=== PATIENT | male | born 1970 | race Caucasian/White ===

== ENCOUNTER 2019-09-26 11:31 | Emergency (ER) | payer OTHER, SELFPAY ==
--- NOTE | ~2019-09-26 | XR_ITS ---
XR knee RT 2V 09/26/2019 12:31 INDICATION: Right knee pain PROCEDURE: 2 views right knee COMPARISON: No prior studies for comparison. FINDINGS: Fracture, dislocation or subluxation is not identified. Small knee effusion. The soft tissu es appear within normal limits. No foreign bodies are identified. IMPRESSION: 1: NO ACUTE BONE OR JOINT ABNORMALITY IDENTIFIED. Reviewed, dictated and finalized at location A.
[2019-09-26 11:34] VITALS: BP 132/100; PULSE 75; RESP 18; TEMP 36.2; O2SAT 99
[2019-09-26 12:29] LABS: Basophils Percent Auto 0.5 % (0.2-1.2); Eosinophils Absolute Auto 0.3 K/mm3 (0-0.3); Eosinophils Percent Auto 3.7 % (0-4.4); Hematocrit 44.9 % (42.0-52.0); Hemoglobin 15.4 g/dL (14.0-18.0); Immature Granulocyte Absolute 0.02 K/mm3 (0.00-0.031); Immature Granulocyte Percent A 0.2 % (0-0.5); Lymphocytes Absolute Auto 2.49 K/mm3 (0.9-3.2); Lymphocytes Percent Auto 30.3 % (18.3-44.2); Mean Corpuscular HGB Conc 34.3 g/dl (32-36); Mean Corpuscular Hemoglobin 30.1 pg (26-34); Mean Corpuscular Volume 87.9 fl (80-100); Mean Platelet Volume 10.8 fl (7.4-10.4); Monocytes Absolute Auto 0.6 K/mm3 (0.1-0.6); Monocytes Percent Auto 7.2 % (2.6-8.5); Neutrophils Absolute Auto 4.8 K/mm3 (1.3-6.7); Neutrophils Percent Auto 58.1 % (45.5-73.1); Platelet Count Result 237 k/mm3 (150-375); Red Blood Count 5.11 M/mm3 (4.6-6.20); Red Cell Distribution Width 12.4 % (11.5-14.5); White Blood Count 8.2 K/mm3 (4.5-10.0)
[2019-09-26 12:43] LABS: Alanine Aminotransferase 35 U/L (4-50); Albumin Level 4.3 g/dL (3.5-5.1); Alkaline Phosphatase 61 U/L (38-126); Aspartate Amino Transferase 34 U/L (17-59); Bilirubin,Total 0.5 mg/dL (0.2-1.3); Blood Urea Nitrogen 15 mg/dL (9-20); Calcium 8.9 mg/dL (8.4-10.2); Carbon Dioxide 23 mmol/L (22-30); Chloride 103 mmol/L (98-107); Estimated CRCL calculation 600 ml/min; Estimated Glomerular Filt Rate > 60; Glucose 138 mg/dL (75-110); Potassium 3.8 mmol/L (3.4-5.0); Sodium 134 mmol/L (137-145)
--- NOTE | 2019-09-26 12:49 | ED.LOWEXIN ---
HPI - Extremity Injury (Lower) General Chief Complaint: Extremity Injury, Lower Stated Complaint: knee pain/swelling Time Seen by Provider: 09/26/19 12:00 History of Present Illness HPI Narrative: Patient presents with his for sore right knee. He says there was no injury. He woke up with it red and swollen and difficult to move. He works as a excavator. He had an injury to this knee many years ago where he scraped the skin off the side. He has had a varicose vein there for years, but now it is tender. He has had no fever chills sweats. He denies any illness. He takes vitamin supplements but no prescription medicine. He refuses to take an ibuprofen here. Onset (ago): hour(s) Related Data Allergies Allergy/AdvReac Type Severity Reaction Status Date / Time No Known Allergies Allergy Verified 09/26/19 11:36 Review of Systems Review of Systems: Narrative: CONSTITUTIONAL: Denies fever, chills, or sweats. EYES: Denies visual changes, redness, or discharge. ENT: Denies rhinorrhea, congestion, sore throat, or otalgia. CARDIOVASCULAR: Denies chest pain, palpitations, or edema. RESPIRATORY: Denies cough or dyspnea. GASTROINTESTINAL: Denies abdominal pain, nausea, vomiting, or diarrhea. GENITOURINARY: Denies dysuria or hematuria. SKIN: Denies rash or itching. MUSCULOSKELETAL: Denies back pain, or myalgia. NEUROLOGIC: Denies headache, numbness, or weakness. PSYCHIATRIC: Denies anxiety or depression. [facility] Social History Social History (Updated 09/26/19 @ 13:03 by Nisreen Ribeiro MD) Alcohol intake: current Substance use: current Substance use type: marijuana Gender identity (if verbalized by the patient): Male Exam Narrative: Exam Narrative: GENERAL: Well-appearing, well-nourished, and in no acute distress. HEAD: Normocephalic, atraumatic. EYES: PERRLA and EOMI. ENT: Nares clear, no rhinorrhea or epistaxis. Mucous membranes moist. NECK: Supple. CHEST: Clear to auscultation. No respiratory distress. HEART: Regular rate and rhythm. No murmur heard. Normal peripheral pulses. ABDOMEN: Soft, nontender, nondistended, normal active bowel sounds. EXTREMITIES: Right knee swollen slightly red, with a large varicose vein on the medial side, that goes from below the knee laterally and then above the knee. It is not tender to touch SKIN: Warm, dry, no rash. NEURO: No focal deficits. Alert and oriented x3. PSYCH: Normal mood and affect. Course Reevaluation(s) Reevaluation #1: Went in to tell the patient and his the x-ray findings. The thinks that Dr. Obando will see orthopedist that at her mother's hip. The patient agrees to wear the knee immobilizer, and will maybe take the pain medicine. He says he is going back to work today. Then they tell me that her daughter had a soccer injury and had a meniscal tear. I suspect that is what this patient had and told him so. Date: 09/26/19 Time: 13:11 Consultations Consultation #1: Call Dr. Obando, and he was able to look at the x-ray, and recommends a knee immobilizer anti-inflammatories and follow-up in the office. Date: 09/26/19 Time: 13:05 Vital Signs Vital signs: Vital Signs Temperature 97.2 F L 09/26/19 11:34 Pulse Rate 75 09/26/19 11:34 Respiratory Rate 18 09/26/19 11:34 Blood Pressure 132/100 H 09/26/19 11:34 Pulse Oximetry 99 09/26/19 11:34 Temperature 98.0 F 09/26/19 13:45 Pulse Rate 80 09/26/19 13:45 Respiratory Rate 20 09/26/19 13:45 Blood Pressure 120/80 09/26/19 13:45 Pulse Oximetry 99 09/26/19 13:45 MDM - Extremity Injury (Lower) Medical Records Attestation: I reviewed the patient's medical records. Lab Data Attestation: I reviewed the patient's lab results. Result diagrams: 09/26/19 12:20 09/26/19 12:20 Labs: Lab Results 09/26/19 09/26/19 09/26/19 Range/Units 12:20 12:20 12:20 WBC 8.2 (4.5-10.0) K/mm3 RBC 5.11 (4.6-6.20) M/mm3 Hgb 15.4 (14.0-18.0) g/dL
[2019-09-26 12:53] LABS: Erythrocyte Sedimentation Rate 17 mm/hr (0-20)
[2019-09-26] MEDS: IBUPROFEN 600 MG TABLET PO (13:32)
[2019-09-26 13:45] VITALS: BP 120/80; PULSE 80; RESP 20; TEMP 36.7; O2SAT 99
== END 2019-09-26 13:47 | disposition home or self-care (01) ==
PROVIDERS: Emergency Provider Emergency Medicine; PCP Internal Medicine
DX: M25.561 Pain in right knee (principal); M25.461 Effusion, right knee; I83.91 Asymptomatic varicose veins of right lower extremity
CPT/HCPCS: 36415; 73560; 80053; 85025; 85652; 99283; A9270

== ENCOUNTER 2019-12-06 16:45 | Emergency (ER) | payer OTHER, SELFPAY ==
[2019-12-06 17:07] VITALS: BP 128/76; PULSE 76; RESP 16; TEMP 37.1; O2SAT 99
--- NOTE | 2019-12-06 17:18 | ED.LOWEXIN ---
HPI - Extremity Injury (Lower) General Chief Complaint: Extremity Injury, Lower Stated Complaint: right leg pain Time Seen by Provider: 12/06/19 17:18 Source: patient Mode of arrival: ambulatory Limitations: no limitations History of Present Illness HPI Narrative: Lobo Perez is a 49 yo male with no PMH who comes to express care because dog ran into him and he has a large bruise on which leg right lateral lower extremity; states is warm and hot is concerned about a blood clot. He has no history medical history; quit smoking 3 years ago Related Data Allergies Allergy/AdvReac Type Severity Reaction Status Date / Time No Known Allergies Allergy Verified 10/05/19 10:29 Review of Systems Review of Systems: Narrative: CONSTITUTIONAL: Denies fever, chills, sweats. EYES: Denies visual changes, redness, discharge. ENT: Denies rhinorrhea, congestion, sore throat, otalgia. CARDIOVASCULAR: Denies chest pain, palpitations, edema. RESPIRATORY: Denies dyspnea, wheezing, cough GASTROINTESTINAL: Denies abdominal pain, nausea, vomiting, diarrhea. GENITOURINARY: Denies dysuria, hematuria, abnormal discharge SKIN: Denies rash or itching. NEUROLOGIC: Denies numbness, or focal weakness. PSYCHIATRIC: Denies anxiety or depression. Extremity: Right lower extremity bruising PMFSH Past Medical History Medical History Effusion, right knee Right knee injury Right knee pain Seasonal allergies Vision abnormalities Family History Family History Other Diabetes mellitus Heart disease Hypertension Social History Social History Smoking status: Former smoker Smoking end date: 04/18/16 Alcohol intake: current Substance use: current Substance use type: marijuana Gender identity (if verbalized by the patient): Male Comments At time of signature, I agree with nursing past medical, surgical, social and family history. There is no relevant family history pertinent to the presenting complaint. Exam Narrative: Exam Narrative: GENERAL: This is a well-nourished, well-developed patient, in mild distress. HEAD: normocephalic, atraumatic. EYES: Sclera clear/white. Vision is grossly intact. EARS: External ears normal. Hearing grossly intact. NOSE: External nose normal without nasal discharge, nares without redness, no rhinorrhea. THROAT: Mucous membranes moist, NECK: Neck supple, CARDIOVASCULAR: Regular rate and rhythm without murmurs, gallops, or rubs. RESPIRATORY: Clear to auscultation. Breath sounds equal bilaterally. No wheezes, rales, or rhonchi. GASTROINTESTINAL: Abdomen soft, SKIN: warm, intact with no suspicious lesions or rash, good texture and turgor. Torturous varicose vein on right leg that runs from mid anterior thigh to lateral part of right patella down into anterior lower leg; point of contact with dog there is and indurated ecchymotic area about 6 x 4, no pulsation, is not warm, is not erythematous NEURO: awake, alert, and oriented to person, place and time. There were no obvious focal neurologic abnormalities. Steady gait EXTREMITIES: Normal range of motion. BACK: Nontender without deformity Course Course Emergency Course: Patient placed in [place] wrap nurse demonstrated the correct way to apply compression to area, may ice area, patient is not to exercise aggressively till pain is gone from area Vital Signs Vital signs: Vital Signs Temperature 98.7 F 12/06/19 17:07 Pulse Rate 76 12/06/19 17:07 Respiratory Rate 16 12/06/19 17:07 Blood Pressure 128/76 12/06/19 17:07 Pulse Oximetry 99 12/06/19 17:07 Temperature 98.7 F 12/06/19 17:07 Pulse Rate 76 12/06/19 17:07 Respiratory Rate 16 12/06/19 17:07 Blood Pressure 128/76 12/06/19 17:07 Pulse Oximetry 99 12/06/19 17:07 MDM - Extremity Injury (Lower) Differential Mely
== END 2019-12-06 17:41 | disposition home or self-care (01) ==
PROVIDERS: Emergency Provider Nurse Practitioner; PCP Internal Medicine
DX: S80.11XA Contusion of right lower leg, initial encounter (principal); W54.1XXA Struck by dog, initial encounter; Z87.891 Personal history of nicotine dependence
CPT/HCPCS: 99212; G0463

== ENCOUNTER 2024-07-09 11:10 | Outpatient (CLI) | payer OTHER, SELFPAY ==
--- NOTE | ~2024-07-09 | XR_ITS ---
EXAMINATION: XR chest 2V DATE: 07/09/2024 11:34 INDICATION: Cough. TECHNIQUE: Frontal and lateral views of the chest were obtained. COMPARISON: Chest 2 views 11/19/2018, chest CT 11/19/2018 FINDINGS: Calcified bilateral lung nodules and calcified hilar and mediastinal lymph nodes are consis tent with old granulomatous disease. No pleural effusion or pneumothorax. The heart size is normal. IMPRESSION: 1. No acute cardiopulmonary disease. Reviewed, dictated and finalized at location A.
--- OUTSIDE RECORDS SUMMARY | 2024-07-09 13:19 | XMS_ITS | CONTINUITY OF CARE DOCUMENT ---
Author Name debra richardson Address Unknown Organization [facility] Address [id number] [place] [address] [address] [place] [address] Phone [phone] Care Team Providers Care Hand Binder Stripper Name Role Phone debra richardson Unavailable Unavailable
--- OUTSIDE RECORDS SUMMARY | 2024-07-09 13:19 | XMS_ITS | Data Portability ---
Author Organization [place] [employer] Main Office Address [address] [place] [address] Assessment Encounter Date Assessment Date Assessment LastModified by Organization Details LastModified Time 03/22/2023 03/22/2023 53-year-old patient presents today with bilateral thumb pain that has been going on for few months now. He denies any injury. He states he works with his hands daily at his job and is becoming painful to grasp items and drive. For treatment he takes Aleve daily which helps. He rates his pain a 2/10. Review of systems per patient questionnaire Imaging: X-rays reviewed show no acute bony abnormality or fracture. Mild degenerative changes at bilateral CMC joints, other joint spaces preserved. Physical exam: Pain with CMC grind bilaterally. Minimal pain with palpitation around the CMC joint. Able to perform full range of motion without issue. Sensation intact. We will provide him with bilateral thumb splints to help with immobilization of the CMC joint. He can wear these at all times if possible. he is happy with the pain relief he gets from Aleve so he can continue to take that consistently. We discussed the benefits of hand therapy but he is not interested in attending at this time. We will see him back in 2-3 months to check his progress. [email or web address] Not available 03/23/2023 10:41:09 Plan of Treatment Reminders Order Date Submit Date Provider Last Modified By Organization Details Last Modified Time Details Appointments None recorded. Lab lipid panel, serum 2023 024 [email or web address] [facility], [address] [facility], [place], [address], 12:32:18 CMP, serum or plasma 2023 024 [email or web address] [facility], [address] [facility], [place], [address], 4 12:33:13 CBC w/ auto diff 2023 024 [email or web address] [facility], [address] , [place], [address], 4 12:33:51 PSA, serum or plasma 2022 023 [facility], [address] [place], [address], 3 16:23:57 CMP, serum or plasma 2022 023 [email or web address] [facility], [address] [place], [address], 3 16:23:57 lipid panel, serum 2022 023 [email or web address] [facility], [address] [place] [address], [address], 3 16:23:57 Referral None recorded. Procedures None recorded. Surgeries None recorded. Imaging XR, hand 2022 023 [email or web address] [facility], [address], [place], [address], 3 10:35:57 Medication Orders benzonatate 200 mg capsule 2023 024 [id number], [address], [place], [place], [id number], 4 12:02:23 Zithromax Z-Scar 250 mg tablet 2023 024 [facility], [address], [place], [place], [id number], 4 12:02:29 Patient TargetsNo targets recorded. Patient Instructions Encounter Date Encounter Id Patient Instructions Last Modified By Organization Details Last Modified Time 06/22/2022 [id number] risk assessment* [email or web address] Not availabl e 06/22/2022 10:56:28 INFLUENZA VACCIN E Recommended today, but patient declined Ordered Pat ient will get at local pharmacy/health department TD/TDAP Recommended today, patient declined Ordered Pat ient will get at local pharmacy/health department PNEUMONIA VACCINE Ordered Recommended today, patient declined Patient will get at local pharmacy/health department Recommend ed at age 64 SHINGLES Ordered Recommended today, patient declined Patient will get at local pharmacy/health department PSA COLORECTAL SCREENING Recommended today, but patient declined DEPRESSION SCREENING Negative BMI Overweight continue your current weight loss efforts try to lose 5% of your body weight try to lose 10% of your body weight NUTRITION PHYSICAL ACTIVITY Need more exercise/physical activity ALCOHOL USE No alcohol use Occasional/Socia l Use TOBACCO USE former smoker LUNG CANCER SCREENING Non Smoker-not indicated SEXUALLY ACTIVE HEPATITIS C SCREENING Not indicated GLUCOSE SCREENING LIPID SCREENING [email or web address] Not available 06/22/2022 10:38:59 Wellness evaluat ion risk assessment stable. Follow-up for history of gallstones which are asymptomatic, hyperlipidemia, medial meniscus tear and well as obesity all clinically stable. Due for a PSA as well as other blood test. Has suggested for some intermittent pain in the left upper quadrant which sounds muscular try some Mag-Ox twice daily. Will continue on current Rx check blood work consisting of CMP, lipid and PSA. Will also set up for Cologuard test. See no contraindication to surgery. 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 Will set up with orthopedics for further evaluation. Portions of the record may have been created with voice recognition software. Occasional wrong-word or s ound-a-like substitutions may have occurred due to the inherent limitations of voice recognition software. Read the chart carefully and recognize, using context, where substitutions have occurred. Set up with Dr. Renae Anderson for further evaluation. [email or web address] Not available 03/17/2023 14:50:11 04/05/2024 [id number] risk assessment* [email or web address] Not availabl e 04/05/2024 12:02:16 INFLUENZA VACCIN E Recommended today, but patient declined TD/TDAP Recommended today, patient declined Ordered Pat ient will get at local pharmacy/health department PNEUMONIA VACCINE Ordered Recommended today, patient declined Patient will get at local pharmacy/health department Recommend ed at age 64 SHINGLES Ordered Recommended today, patient declined Patient will get at local pharmacy/health department PSA Ordered No screening necessary patient is up to date COLORECTAL SCREENING No screening necessary patient is up to date DEPRESSION SCREENING Negative BMI Overweight continue your current weight loss efforts try to lose 5% of your body weight try to lose 10% of your body weight NUTRITION PHYSICAL ACTIVITY Need more exercise/physical activity ALCOHOL USE No alcohol use Occasional/Socia l Use TOBACCO USE non smoker LUNG CANCER SCREENING Non Smoker-not indicated SEXUALLY ACTIVE HEPATITIS C SCREENING Not indicated GLUCOSE SCREENING LIPID SCREENING [email or web address] Not available 04/05/2024 11:24:57 Adult health examination risk assessment stable. Follow-up for bronchitis, hyperlipidemia and obesity. Plan to check blood work consisting of CBC, CMP and lipid panel. Continue on current Rx will give a coverage of a Z-Scar and a steroid Medrol past. Follow-up in six months Follow Up: 6 Months Approximate Date: 10/02/2024 Portions of the record may have been created with voice recognition software. Occasional wrong-word or s ound-a-like substitutions may have occurred due to the inherent limitations of voice recognition software. Read the chart carefully and recognize, using context, where substitutions have occurred. Created: Cipriano Trujillo M.D. 04.05.2024 11:01 AM Not available 04/05/2024 12:01:40 Reason for Referral None Reported. Results Created Date Observation Date Name Description Value Unit Range Abnormal Flag Note LastModifiedBy Organization Detail LastModifiedTime 07/28/1907/27/2022 COLOG UARD cologuard result reportable NEGATI VE negati ve NEGAT ROSE TEST RESUL T. A negat rose Colog uard resul t indic ates a low likel ihood that a color ectal cance r (CRC) or advan foster adeno ma (roslyn omato us polyp s with more advan foster pre-m align ant featu res) is prese nt. The chanc e that a perso n with a negat rose Colog uard test has a color ectal cance r is less than 1 in 1500 (nega tive predi ctive value >99.9 %) or has an advan foster adeno ma is less than 5.3% (nega tive predi ctive value 94.7% ). These data are based on a prosp ectiv e cross -sect ional study of 10,00 0 indiv idual s at [place] [facility] risk for color ectal cance r who were scree abe with both Colog uard and colon oscop y. (Maki Valladares. et al, N Engl J Med 2014; 370(1 4):12 86-12 97) The abbie l value (refe rence range ) for this assay is negat rose. COLOG UARD RE-SC REENI NG RECOM MENDA TION: Perio dic color ectal cance r scree ricky is an impor tant part of preve ntive healt hcare for asymp tomat ic indiv idual s at [place] [facility] risk for color ectal cance r. Follo wing a negat rose Colog uard resul t, the Ameri can Cance r Socie ty and U.S. Multi -Soci ety Task Force scree ricky guide lines recom mend a Colog uard re-sc reeni ng inter anders of 3 years . Refer ences : Ameri can Cance r Socie ty Guide line for Color ectal Cance r Scree ricky: https ://jaylen w.can cer.o rg/ca ncer/ colon -rect al-ca ncer/ detec tion- diagn osis- stagi ng/ac s-rec ommen datio ns.ht ml.; Eben JACOBS, Obdulia LEUNG, Yehuda FULLER, Color ectal Cance r Scree ricky: Recom menda tions for Physi cians and Patie nts from the U.S. Multi -Soci ety Task Force on Color ectal Cance r Scree ricky , Hailey ge rolog y 2017; 112:1 016-1 030. TEST DESCR IPTIO N: [place] site algor ithmi c damaris sis of stool DNA-b iomar kers with hemog lobin immun oassa y. Quant itati ve value s of indiv idual bioma rkers are not repor table and are not assoc iated with indiv idual bioma rker resul t refer ence range s. Colog uard is inten ded for color ectal cance r scree ricky of adult s of eithe r sex, 45 years or older , who are at [facility] for color ectal cance r (CRC) . Colog uard has been appro gaby for use by the U.S. FDA. The perfo rmanc e of Colog uard was estab lishe d in a cross secti onal study of [facility] adult s aged 50-84 . Colog uard perfo rmanc e in patie nts ages 45 to 49 years was estim ated by sub-g roup damaris sis of near- age group s. Colon oscop ies perfo rmed for a posit rose resul t may find as the most clini doreen signi fican t lesio n: color ectal cance r [4.0% ], advan foster adeno ma (incl uding sessi le stacie jaja polyp s great er than or equal to 1cm diame ter) [20%] or non- advan foster adeno ma [31%] ; or no color ectal neopl betty [45%] . These estim ates are deriv ed from a prosp ectiv e cross -sect ional scree ricky study of 0 indiv idual s at [facility] for color ectal cance r who were scree abe with both Colog uard and colon oscop y. (Maki Paz et al, N Engl J Med 2014; 370(1 4):12 86-12 97.) Colog uard may produ ce a false negat rose or false posit rose resul t (no color ectal cance r or preca ncero us polyp prese nt at colon oscop y follo w up). A negat rose Colog uard test resul t does not guara ntee the absen ce of CRC or advan foster adeno ma (pre- cance r). The curre nt Colog uard scree ricky inter anders is every 3 years . (Amer ican Cance r Socie ty and U.S. Multi -Soci ety Task Force ). Colog uard perfo rmanc e data in a 0 patie nt pivot al study using colon oscop y as the refer ence metho d can be acces sed at the follo wing locat ion: www.e xactl abs.c om/re yenny . Addit ional descr iptio n of the Colog uard test proce ss, warni ngs and preca ution s can be found at www.c jewelogu deepa.c om. Not Available [facility] (Cologuard Orders Only) [address], [place], [address], 08/03/2022 10:33:40 07/27/19 24 07/30/2023 LIPID PANEL , STAND DEEPA cholesterol, total 239 mg/dL <200 high Not Available [facility] [address] [address] [place], [address], 07/30/2023 23:25:22 07/27/19 24 07/30/2023 LIPID PANEL , STAND DEEPA HDL cholesterol 45 mg/dL > or = 40 normal Not Available [facility] [address] [address] [place], [address], 07/30/2023 23:25:22 07/27/19 24 07/30/2023 LIPID PANEL , STAND DEEPA triglyceride s 120 mg/dL <150 normal Not Available [facility] [address] [address] [place], [address], 07/30/2023 23:25:22 07/27/19 24 07/30/2023 LIPID PANEL , STAND DEEPA LDL-choleste rol 169 mg/dL _(ingrid c) high Refer ence range : <100 Tushar able range <100 mg/dL for prima ry preve ntion ; <70 mg/dL for patie nts with CHD or diabe tic patie nts with > or = 2 CHD risk facto rs. LDL-C is now calcu lated using the Tania n-Hop kins calcu latio n, which is a valid ated novel metho d provi bacilio gregg acy than the Fried marsha equat ion in the estim ation of LDL-C . Tania n SS et al. JOANNA. 2013; 310(1 9): 2061- 2068 (http ://ed ucati on.Martell [employer]. com/f aq/FA Q164) Not Available [address] [address] [place], [address], 07/30/2023 23:25:22 07/27/19 24 07/30/2023 LIPID PANEL , STAND DEEPA chol/HDLC ratio 5.3 (calc ) <5.0 high Not Available [address] [place], [address], 07/30/2023 23:25:22 07/27/19 24 07/30/2023 LIPID PANEL , STAND DEEPA non HDL cholesterol 194 mg/dL _(ingrid c) <130 high For patie nts with diabe flako plus 1 major ASCVD risk facto r, treat ing to a non-H DL-C goal of <100 mg/dL (LDL- C of <70 mg/dL ) is consi dered a thera peuti c optio n. Not Available [address], [address], 07/30/2023 23:25:22 07/27/19 24 07/30/2023 COMPR EHENS ROSE METAB OLIC PANEL glucose 77 mg/dL 65-99 normal Fasti ng refer ence inter anders Not Available [address], [address], 07/30/2023 23:25:23 07/27/19 24 07/30/2023 COMPR EHENS ROSE METAB OLIC PANEL urea nitrogen (BUN) 16 mg/dL 7-25 normal Not Available [address], [address], 07/30/2023 23:25:23 07/27/19 24 07/30/2023 COMPR EHENS ROSE METAB OLIC PANEL creatinine 0.94 mg/dL 0.70-1 .30 normal Not Available [facility] [address] [place], [address], 07/30/2023 23:25:23 07/27/19 24 07/30/2023 COMPR EHENS ROSE METAB OLIC PANEL eGFR 96 mL/mi n/1.7 3m2 > or = 60 normal Not Available [address], [address], 07/30/2023 23:25:23 07/27/19 24 07/30/2023 COMPR EHENS ROSE METAB OLIC PANEL BUN/creatini ne ratio SEE NOTE: (calc ) 6-22 Not Repor jaja: BUN and Creat inine are withi n refer ence range . Not Available [address], [place], [address], 07/30/2023 23:25:23 07/27/19 24 07/30/2023 COMPR EHENS ROSE METAB OLIC PANEL sodium 135 mmol/ L 135-14 6 normal Not Available [address] [address] [place], [address], 07/30/2023 23:25:23 07/27/19 24 07/30/2023 COMPR EHENS ROSE METAB OLIC PANEL potassium 4.6 mmol/ L 3.5-5. 3 normal Not Available [address] [address] [place], [address], 07/30/2023 23:25:23 07/27/19 24 07/30/2023 COMPR EHENS ROSE METAB OLIC PANEL chloride 101 mmol/ L 98-110 normal Not Available [address] [address] [place], [address], 07/30/2023 23:25:23 07/27/19 24 07/30/2023 COMPR EHENS ROSE METAB OLIC PANEL carbon dioxide 28 mmol/ L 20-32 normal Not Available [address] [address] [place], [address], 07/30/2023 23:25:23 07/27/19 24 07/30/2023 COMPR EHENS ROSE METAB OLIC PANEL calcium 9.3 mg/dL 8.6-10 .3 normal Not Available [address], [address], 07/30/2023 23:25:23 07/27/19 24 07/30/2023 COMPR EHENS ROSE METAB OLIC PANEL protein, total 7.7 g/dL 6.1-8. 1 normal Not Available [address], [address], 07/30/2023 23:25:23 07/27/19 24 07/30/2023 COMPR EHENS ROSE METAB OLIC PANEL albumin 4.2 g/dL 3.6-5. 1 normal Not Available [address], [address], 07/30/2023 23:25:23 07/27/19 24 07/30/2023 COMPR EHENS ROSE METAB OLIC PANEL globulin 3.5 g/dL_ (calc ) 1.9-3. 7 normal Not Available [address], [address], 07/30/2023 23:25:23 07/27/19 24 07/30/2023 COMPR EHENS ROSE METAB OLIC PANEL albumin/glob ulin ratio 1.2 (calc ) 1.0-2. 5 normal Not Available [address], [address], 07/30/2023 23:25:23 07/27/19 24 07/30/2023 COMPR EHENS ROSE METAB OLIC PANEL bilirubin, total 0.5 mg/dL 0.2-1. 2 normal Not Available [address], [address], 07/30/2023 23:25:23 07/27/19 24 07/30/2023 COMPR EHENS ROSE METAB OLIC PANEL alkaline phosphatase 44 U/L 35-144 normal Not Available [address], [address], 07/30/2023 23:25:23 07/27/19 24 07/30/2023 COMPR EHENS ROSE METAB OLIC PANEL AST 32 U/L 10-35 normal Not Available [address], [address], 07/30/2023 23:25:23 07/27/19 24 07/30/2023 COMPR EHENS ROSE METAB OLIC PANEL ALT 33 U/L 9-46 normal Not Available [address], [address], 07/30/2023 23:25:23 07/27/19 24 07/30/2023 CBC (INCL UDES DIFF/ PLT) white blood cell count 6.5 thous and/u L 3.8-10 .8 normal Not Available [address], [address], 07/30/2023 23:25:24 07/27/19 24 07/30/2023 CBC (INCL UDES DIFF/ PLT) red blood cell count 5.15 angela on/uL 4.20-5 .80 normal Not Available [address], [address], 07/30/2023 23:25:24 07/27/19 24 07/30/2023 CBC (INCL UDES DIFF/ PLT) hemoglobin 15.5 g/dL 13.2-1 7.1 normal Not Available [address], [address], 07/30/2023 23:25:24 07/27/19 24 07/30/2023 CBC (INCL UDES DIFF/ PLT) hematocrit 46.6 % 38.5-5 0.0 normal Not Available [address], [address], 07/30/2023 23:25:24 07/27/19 24 07/30/2023 CBC (INCL UDES DIFF/ PLT) MCV 90.5 fL 80.0-1 00.0 normal Not Available [address], [address], 07/30/2023 23:25:24 07/27/19 24 07/30/2023 CBC (INCL UDES DIFF/ PLT) MCH 30.1 pg 27.0-3 3.0 normal Not Available [address], [address], 07/30/2023 23:25:24 07/27/19 24 07/30/2023 CBC (INCL UDES DIFF/ PLT) MCHC 33.3 g/dL 32.0-3 6.0 normal Not Available [address], [address], 07/30/2023 23:25:24 07/27/19 24 07/30/2023 CBC (INCL UDES DIFF/ PLT) RDW 12.7 % 11.0-1 5.0 normal Not Available [address], [address], 07/30/2023 23:25:24 07/27/19 24 07/30/2023 CBC (INCL UDES DIFF/ PLT) platelet count 195 thous and/u L 140-40 0 normal Not Available [address], [address], 07/30/2023 23:25:24 07/27/19 24 07/30/2023 CBC (INCL UDES DIFF/ PLT) MPV 11.5 fL 7.5-12 .5 normal Not Available [address], [address], 07/30/2023 23:25:24 07/27/19 24 07/30/2023 CBC (INCL UDES DIFF/ PLT) absolute neutrophils 3328 cells /uL 1500-7 800 normal Not Available [address], [address], 07/30/2023 23:25:24 07/27/19 24 07/30/2023 CBC (INCL UDES DIFF/ PLT) absolute lymphocytes 2282 cells /uL 850-39 00 normal Not Available [address] [place], [address], 07/30/2023 23:25:24 07/27/19 24 07/30/2023 CBC (INCL UDES DIFF/ PLT) absolute monocytes 579 cells /uL 200-95 0 normal Not Available [address], [address], 07/30/2023 23:25:24 07/27/19 24 07/30/2023 CBC (INCL UDES DIFF/ PLT) absolute eosinophils 260 cells /uL 15-500 normal Not Available [address], [address], 07/30/2023 23:25:24 07/27/19 24 07/30/2023 CBC (INCL UDES DIFF/ PLT) absolute basophils 52 cells /uL 0-200 normal Not Available [address], [address], 07/30/2023 23:25:24 07/27/19 24 07/30/2023 CBC (INCL UDES DIFF/ PLT) neutrophils 51.2 % normal Not Available [address], [address], 07/30/2023 23:25:24 07/27/19 24 07/30/2023 CBC (INCL UDES DIFF/ PLT) lymphocytes 35.1 % normal Not Available [address], [address], 07/30/2023 23:25:24 07/27/19 24 07/30/2023 CBC (INCL UDES DIFF/ PLT) monocytes 8.9 % normal Not Available [address], [address], 07/30/2023 23:25:24 07/27/19 24 07/30/2023 CBC (INCL UDES DIFF/ PLT) eosinophils 4.0 % normal Not Available [address], [address], 07/30/2023 23:25:24 07/27/19 24 07/30/2023 CBC (INCL UDES DIFF/ PLT) basophils 0.8 % normal Not Available [address], [address], 07/30/2023 23:25:24 07/27/19 24 07/30/2023 T4, FREE T4, free 0.9 NG/dL 0.8-1. 8 normal Not Available [address], [address], 07/30/2023 23:25:25 07/27/19 24 07/30/2023 PSA, TOTAL PSA, total 0.22 NG/mL < or = 4.00 normal The total PSA value from this assay syste m is stand ardiz ed again st the WHO stand deepa. The test resul t will be appro ximat elodia 20% lower when cookie red to the equim olar- stand ardiz ed total PSA (Galarza man Coult er). Cookie rison of seria l PSA resul ts shoul d be inter prete d with this fact in mind. This test was perfo rmed using the [employer] chemi lumin escen t metho d. Value s obtai abe from diffe rent assay metho ds canno t be used inter ricci eably . PSA level s, regar dless of value , shoul d not be inter prete d as absol bernard evide nce of the prese nce or absen ce of disea se. Not Available [facility] [place] [address] [place], [address], 07/30/2023 23:25:26 07/27/19 24 07/30/2023 TSH TSH 2.44 mIU/L 0.40-4 .50 normal Not Available [facility] [address] [address] [place], [address], 07/30/2023 23:25:27 07/27/19 24 07/30/2023 TESTO STERO NE, TOTAL , MS testosterone , total, MS 488 NG/dL 250-11 00 For addit ional infor rylan wallace e refer to https ://ed ucati on.qu estMyCityWay. com/f aq/To gamalJett adrian emilyrigo LCMSM S (This link is being provi ded for infor burton nal/e ducat ional purpo ses only. ) (Note ) This test was devrobert perez and its damaris tical perfo rmanc e emeka cteri stics have been deter mined by [employer]. It has not been clear ed or appro gaby by the FDA. This assay has been valid ated pursu ant to the CLIA regul ation s and is used for clini ingrid purpo ses. F med darci n [address] [facility] [address] [facility] [address] [phone] Geno Ferreira MD, PhD Not Available [address] [address] [place], [address], 07/30/2023 23:25:27 04/05/20 24 04/06/2024 LIPID PANEL , STAND DEEPA cholesterol, total 242 mg/dL <200 high Not Available [address] [address] [place], [address], 04/06/2024 13:31:27 04/05/20 24 04/06/2024 LIPID PANEL , STAND DEEPA HDL cholesterol 52 mg/dL > or = 40 normal Not Available [facility] [place] [address] [address] [place], [address], 04/06/2024 13:31:27 04/05/20 24 04/06/2024 LIPID PANEL , STAND DEEPA triglyceride s 140 mg/dL <150 normal Not Available [address], [address], 04/06/2024 13:31:27 04/05/20 24 04/06/2024 LIPID PANEL , STAND DEEPA LDL-choleste rol 162 mg/dL _(ingrid c) high Refer ence range : <100 Tushar able range <100 mg/dL for prima ry preve ntion ; <70 mg/dL for patie nts with CHD or diabe tic patie nts with > or = 2 CHD risk facto rs. LDL-C is now calcu lated using the Tania n-Hop kins calcu parker n, which is a valid ated novel geneo garfield provi bacilio humberto r accur acy than the Fried marsha equat ion in the estim ation of LDL-C . Tania ferguson SS et al. JOANNA. 2013; 310(1 9): 2061- 2068 (http ://ed ucati on.Qu [employer]. com/f aq/FA Q164) Not Available [address], [address], 04/06/2024 13:31:27 04/05/20 24 04/06/2024 LIPID PANEL , STAND DEEPA chol/HDLC ratio 4.7 (calc ) <5.0 normal Not Available [address], [address], 04/06/2024 13:31:27 04/05/20 24 04/06/2024 LIPID PANEL , STAND DEEPA non HDL cholesterol 190 mg/dL _(ingrid c) <130 high For patie nts with diabe flako plus 1 major ASCVD risk facto r, treat ing to a non-H DL-C goal of <100 mg/dL (LDL- C of <70 mg/dL ) is consi dered a thera peuti c optio n. Not Available [address] [address] [place], [address], 04/06/2024 13:31:27 04/05/20 24 04/06/2024 COMPR EHENS ROSE METAB OLIC PANEL glucose 92 mg/dL 65-99 normal Fasti ng refer ence inter anders Not Available [address] [address] [place], [address], 04/06/2024 13:31:28 04/05/20 24 04/06/2024 COMPR EHENS ROSE METAB OLIC PANEL urea nitrogen (BUN) 12 mg/dL 7-25 normal Not Available [address] [address] [place], [address], 04/06/2024 13:31:28 04/05/20 24 04/06/2024 COMPR EHENS ROSE METAB OLIC PANEL creatinine 0.82 mg/dL 0.70-1 .30 normal Not Available [address] [address] [place], [address], 04/06/2024 13:31:28 04/05/20 24 04/06/2024 COMPR EHENS ROSE METAB OLIC PANEL eGFR 104 mL/mi n/1.7 3m2 > or = 60 normal Not Available [address] [address] [place], [address], 04/06/2024 13:31:28 04/05/20 24 04/06/2024 COMPR EHENS ROSE METAB OLIC PANEL BUN/creatini ne ratio SEE NOTE: (calc ) 6-22 Not Repor jaja: BUN and Creat inine are withi n refer ence range . Not Available [address] [address] [place], [address], 04/06/2024 13:31:28 04/05/20 24 04/06/2024 COMPR EHENS ROSE METAB OLIC PANEL sodium 135 mmol/ L 135-14 6 normal Not Available [facility] [address], [address], 04/06/2024 13:31:28 04/05/20 24 04/06/2024 COMPR EHENS ROSE METAB OLIC PANEL potassium 4.5 mmol/ L 3.5-5. 3 normal Not Available [address], [address], 04/06/2024 13:31:28 04/05/20 24 04/06/2024 COMPR EHENS ROSE METAB OLIC PANEL chloride 99 mmol/ L 98-110 normal Not Available [address] [address], [address], 04/06/2024 13:31:28 04/05/20 24 04/06/2024 COMPR EHENS ROSE METAB OLIC PANEL carbon dioxide 32 mmol/ L 20-32 normal Not Available [address], [address], 04/06/2024 13:31:28 04/05/20 24 04/06/2024 COMPR EHENS ROSE METAB OLIC PANEL calcium 9.6 mg/dL 8.6-10 .3 normal Not Available [address], [address], 04/06/2024 13:31:28 04/05/20 24 04/06/2024 COMPR EHENS ROSE METAB OLIC PANEL protein, total 8.0 g/dL 6.1-8. 1 normal Not Available [address], [address], 04/06/2024 13:31:28 04/05/20 24 04/06/2024 COMPR EHENS ROSE METAB OLIC PANEL albumin 4.3 g/dL 3.6-5. 1 normal Not Available [address], [address], 04/06/2024 13:31:28 04/05/20 24 04/06/2024 COMPR EHENS ROSE METAB OLIC PANEL globulin 3.7 g/dL_ (calc ) 1.9-3. 7 normal Not Available [address], [address], 04/06/2024 13:31:28 04/05/20 24 04/06/2024 COMPR EHENS ROSE METAB OLIC PANEL albumin/glob ulin ratio 1.2 (calc ) 1.0-2. 5 normal Not Available [address], [address], 04/06/2024 13:31:28 04/05/20 24 04/06/2024 COMPR EHENS ROSE METAB OLIC PANEL bilirubin, total 0.5 mg/dL 0.2-1. 2 normal Not Available [address], [address], 04/06/2024 13:31:28 04/05/20 24 04/06/2024 COMPR EHENS ROSE METAB OLIC PANEL alkaline phosphatase 52 U/L 35-144 normal Not Available [facility] [address], [address], 04/06/2024 13:31:28 04/05/20 24 04/06/2024 COMPR EHENS ROSE METAB OLIC PANEL AST 36 U/L 10-35 high Not Available [address], [address], 04/06/2024 13:31:28 04/05/20 24 04/06/2024 COMPR EHENS ROSE METAB OLIC PANEL ALT 41 U/L 9-46 normal Not Available [address], [address], 04/06/2024 13:31:28 04/05/20 24 04/06/2024 CBC (INCL UDES DIFF/ PLT) white blood cell count 7.0 thous and/u L 3.8-10 .8 normal Not Available [address], [address], 04/06/2024 13:31:30 04/05/20 24 04/06/2024 CBC (INCL UDES DIFF/ PLT) red blood cell count 5.30 angela on/uL 4.20-5 .80 normal Not Available [address], [address], 04/06/2024 13:31:30 04/05/20 24 04/06/2024 CBC (INCL UDES DIFF/ PLT) hemoglobin 15.9 g/dL 13.2-1 7.1 normal Not Available [address], [address], 04/06/2024 13:31:30 04/05/20 24 04/06/2024 CBC (INCL UDES DIFF/ PLT) hematocrit 47.6 % 38.5-5 0.0 normal Not Available [address], [address], 04/06/2024 13:31:30 04/05/20 24 04/06/2024 CBC (INCL UDES DIFF/ PLT) MCV 89.8 fL 80.0-1 00.0 normal Not Available [address], [address], 04/06/2024 13:31:30 04/05/20 24 04/06/2024 CBC (INCL UDES DIFF/ PLT) MCH 30.0 pg 27.0-3 3.0 normal Not Available [address], [address], 04/06/2024 13:31:30 04/05/20 24 04/06/2024 CBC (INCL UDES DIFF/ PLT) MCHC 33.4 g/dL 32.0-3 6.0 normal For adult s, a sligh t decre ase in the calcu lated MCHC value (in the range of 30 to 32 g/dL) is most likel y not clini doreen signi jeremiah t; roro er, it shoul d be inter prete d with cauti on in corre latio n with other red cell feliberto eters and the patie nt's clini ingrid condi tion. Not Available [address], [address], 04/06/2024 13:31:30 04/05/20 24 04/06/2024 CBC (INCL UDES DIFF/ PLT) RDW 13.0 % 11.0-1 5.0 normal Not Available [facility] [address], [address], 04/06/2024 13:31:30 04/05/20 24 04/06/2024 CBC (INCL UDES DIFF/ PLT) platelet count 220 thous and/u L 140-40 0 normal Not Available [address], [address], 04/06/2024 13:31:30 04/05/20 24 04/06/2024 CBC (INCL UDES DIFF/ PLT) MPV 11.8 fL 7.5-12 .5 normal Not Available [address], [address], 04/06/2024 13:31:30 04/05/20 24 04/06/2024 CBC (INCL UDES DIFF/ PLT) absolute neutrophils 3878 cells /uL 1500-7 800 normal Not Available [address], [address], 04/06/2024 13:31:30 04/05/20 24 04/06/2024 CBC (INCL UDES DIFF/ PLT) absolute lymphocytes 2170 cells /uL 850-39 00 normal Not Available [address], [address], 04/06/2024 13:31:30 04/05/20 24 04/06/2024 CBC (INCL UDES DIFF/ PLT) absolute monocytes 630 cells /uL 200-95 0 normal Not Available [address], [address], 04/06/2024 13:31:30 04/05/20 24 04/06/2024 CBC (INCL UDES DIFF/ PLT) absolute eosinophils 280 cells /uL 15-500 normal Not Available [address], [address], 04/06/2024 13:31:30 04/05/20 24 04/06/2024 CBC (INCL UDES DIFF/ PLT) absolute basophils 42 cells /uL 0-200 normal Not Available [address], [address], 04/06/2024 13:31:30 04/05/20 24 04/06/2024 CBC (INCL UDES DIFF/ PLT) neutrophils 55.4 % normal Not Available [address], [address], 04/06/2024 13:31:30 04/05/20 24 04/06/2024 CBC (INCL UDES DIFF/ PLT) lymphocytes 31.0 % normal Not Available [address], [address], 04/06/2024 13:31:30 04/05/20 24 04/06/2024 CBC (INCL UDES DIFF/ PLT) monocytes 9.0 % normal Not Available [address], [address], 04/06/2024 13:31:30 04/05/20 24 04/06/2024 CBC (INCL UDES DIFF/ PLT) eosinophils 4.0 % normal Not Available [address], [address], 04/06/2024 13:31:30 04/05/20 24 04/06/2024 CBC (INCL UDES DIFF/ PLT) basophils 0.6 % normal Not Available [facility] [address] [address], [place], [address], 04/06/2024 13:31:30 03/22/20 23 XR, hand No observ ation record ed. [email or web address] [facility] [place] [address], [place], [address], 03/23/2023 10:35:56 04/25/19 24 04/25/2023 CT, head, w/wo contr ast [facility] [address] [place] [address] Patien t Name: LOBO PEREZ Access ion #: [id number] Sex: M : 1969 8 Dictat ed By: Mima salazar Attend ing Physic joana: BREONNA TRUJILLO CE Orderi ng Physic joana: BREONNA TRUJILLO CE Exam Date: 2023 13:26 PM Exam Name: CT HEAD WO Admitt ing Diagno sis(es ): CLINIC AL INFORM ATION: Acute posttr aumati c headac he. TECHNI QUE: Axial imagin g was obtain ed throug h the brain withou t contra st. Kirby l and sagitt al reform atted images were obtain ed, review ed, and stored . Images were review ed in brain and bone window s. All CT scans at this medica l facili ty are perfor med using dose modula tion techni ques as approp riate to a perfor med exam includ ing the follow ing: Automa jaja exposu re contro l was utiliz ed; adjust ment of the MA and/or KV accord ing to patien t size; and use of iterat rose recons tructi on techni que. CTDIvo l = 46.59 mGy DLP = 1039.2 mGy-cm COMPAR ANGELIC: No prior studie s. FINDIN GS: There is no acute intrac ranial hemorr mila or extraa xial fluid collec tion. No mass effect or midlin e shift. The ventri cles and sulci are within normal limits in size for age. Basal cister ns are patent . The calvar ium is unrema rkable . Parana dex sinuse s and mastoi d air cells are clear. IMPRES TREY: No CT eviden ce of acute intrac ranial abnorm ality. Electr onical ly Signed by: Mima salazar at 2023 15:09: 16 PM Page 1 [email or web address] [facility] (Imaging) [address] [place], [address], 04/25/2023 17:01:24 Result Notes None recorded. Problems Name Problem SNOMED Code Status Onset Date Resolution Date Notes Provider Name and Address Organization Details Recorded Time Renewal of prescripti on Active 2021 Not Available [facility] 3 12:55:28 Hyperchole sterolemia 23171793 Active Not Available [facility] 3 12:55:28 Blood glucose outside reference range 201053026 Active Not Available [facility] 3 12:55:29 Contact dermatitis caused by urushiol from [place] poison angela 832002489 Active 2021 Not Available [facility] 3 12:55:29 Ulnar nerve entrapment 005853113 Active Not Available [facility] 3 12:55:29 Low back strain 753871720 Active 2021 Not Available [facility] 3 12:55:29 Acute pharyngiti s 142133857 Active 2021 Not Available [facility] 3 12:55:29 History of gallstones 772698090 Active 2021 Not Available [facility] 3 12:55:29 Bilateral tinnitus 6734715093669 Active 2021 Not Available [facility] 3 12:55:29 Muscle pain 10268589 Active Not Available [facility] 3 12:55:29 Fatigue 24320459 Active Not Available [facility] 3 12:55:29 Tear of medial meniscus of knee 206443127 Active 2022 Cipriano Trujillo MD [address], [place], [address] , [facility] 3 10:49:55 Obesity 626880882 Active 2022 Cipriano Trujillo MD [address], [address], [place], [address] , [facility] 3 10:51:15 Disorder of prostate 43837824 Active 2022 Cipriano Trujillo MD [address], [address], [place], [address] , [facility] 3 10:55:20 Degenerati ve joint disease of hand 97375785 Active 2022 Cipriano Trujillo MD [address], [address], [place], [address] , [facility] 3 14:47:57 Pain of bilateral hands 4788212810309 9109 Active 2022 LARISA Melton [place] [facility] 3 09:19:16 Acute posttrauma tic headache 1643380311174 05 Active 2023 Serene arita [place] [facility] 4 15:39:24 Acute bronchitis 34332622 Active 2023 Cipriano Trujillo MD [address], [address], [place], [address] , [facility] 4 12:15:49 Acute sinusitis 85630237 Active 2024 Cipriano Trujillo MD [address], [address], [place], [address] , [facility] 5 12:29:48 Cough 35713234 Active 2024 Serene arita [place] [facility] 5 11:13:55 Problem Notes None recorded. Procedures Surgical History Date Name Laterality Status Provider Name and Address Organization Details Recorded Time Knee Surgery completed LARISA Melton [place] [facility] 03/22/2023 09:18:13 Imaging Results Imaging Date Name Status LastModified by Organiz ation Details LastModified Time 03/22/2023 XR, hand completed [email or web address] [facility] [place] [facility] [address], [place], [address], 03/23/2023 10:35:56 04/25/2023 CT, head, w/wo contrast completed [email or web address] [facility] (Imaging) [address] [facility], [place], [address], 04/25/2023 17:01:24 Procedure Notes None recorded. Medical Equipment None Reported. Allergies No known drug allergies Medications Name Sig Start Date Stop Date Status Note LastModified by Organization Details LastModified Time amoxicillin 500 mg capsule TAKE 1 CAPSULE BY MOUTH THREE TIMES DAILY FOR 10 DAYS 06/22 completed Not Available Not Available Not Available furosemide 40 mg tablet TAKE 1 TABLET BY MOUTH EVERY DAY active Not Available Not Available No t Available atorvastati n 20 mg tablet Take 1 tablet every day by oral route. 06/24 completed Not Available Not Available Not Available azithromyci n 250 mg tablet TAKE 2 TABLETS (500 MG) BY ORAL ROUTE ONCE DAILY FOR 1 DAY THEN 1 TABLET (250 MG) BY ORAL ROUTE ONCE DAILY FOR 4 DAYS active Not Available Not Available No t Available ibuprofen 800 mg tablet TAKE 1 TABLET BY MOUTH THREE TIMES DAILY WITH MEALS 04/05 completed Not Available Not Available Not Available benzonatate 200 mg capsule Take 1 capsule 3 times a day by oral route. active Not Available Not Available No t Available Keflex 500 mg capsule one four times a day active Not Available Not Available No t Available Aleve 220 mg tablet Take 1 tablet every 12 hours by oral route. active Not Available Not Available No t Available alprazolam 0.5 mg tablet 06/22 completed Not Available Not Available Not Available amoxicillin 875 mg tablet TAKE 1 TABLET BY MOUTH EVERY 12 HOURS 04/05 completed Not Available Not Available Not Available meclizine 25 mg tablet Take 1 tablet 3 times a day by oral route. 04/27 completed Not Available Not Available Not Available baclofen 10 mg tablet Take 1 tablet 4 times a day by oral route. active Not Available Not Available No t Available pantoprazol e 40 mg tablet,angelina yed release Take 1 tablet every day by oral route. active Not Available Not Available No t Available Valtrex 1 gram tablet Take 1 tablet 3 times a day by oral route. active Not Available Not Available No t Available testosteron e cypionate 200 mg/mL intramuscul ar oil INJECT 1 ML EVERY OTHER WEEK DX: E29.1 active Not Available Not Available No t Available ibuprofen 600 mg tablet TAKE 1 TABLET BY MOUTH THREE TIMES A DAY NEEDED 06/22 completed Not Available Not Available Not Available Placentia 7.5 mg-325 mg tablet One tablet four times daily for acute lower back pain 04/27 completed Not Available Not Available Not Available methylpredn isolone 4 mg tablets in a dose pack As Directed 2024 active Not Available Not Available Not Avai lable hydroxyzine HCl 10 mg tablet Take by oral route four times daily PRN for itching active Not Available Not Available No t Available amoxicillin 875 mg-potassiu m clavulanate 125 mg tablet Take 1 tablet every 12 hours by oral route. 2024 active Not Available Not Available Not Avai lable testosteron e 1 % (50 mg/5 gram) transdermal gel packet Apply 1 packet every day by transderm al route. 04/27 completed Not Available Not Available Not Available rosuvastati n 10 mg tablet TAKE 1 TABLET BY MOUTH EVERY DAY active Not Available Not Available No t Available Prevacid 02/12 completed Not Available Not Available Not Available Androderm 4 mg/24 hr transdermal 24 hour patch different rx was sent in 04/27 completed Not Available Not Available Not Available potassium chloride ER 20 mEq tablet,exte nded release Take 1 tablet every day by oral route. 08/10 completed Not Available Not Available Not Available turmeric active Not Available Not Avai lable Not Available semaglutide (weight loss) 0.5 mg/0.5 mL subcutaneou s pen injector INJECT 0.5 MG BY SUBCUTANE OUS ROUTE ONCE WEEKLY ON THE SAME DAY OF EACH WEEK 03/22 completed Not Available Not Available Not Available Vitals Date Recorded Body mass index (BMI) Body height Oxygen saturation Oxygen saturation in Arterial blood by Pulse oximetry Heart rate Body temperature Body weight Systolic blood pressure Diastolic blood pressure Provider Name and Address Organization Details Last Updated DateTime 2 37 kg/m2 182.88 cm 98 % 98 % 90 /min 96.5 [degF] 272011. 72 g 122 mm[Hg] 80 mm[Hg] Not Available [facility] 3 12:54:26 Date Recorded Body height Body mass index (BMI) Body weight Heart rate Body temperature Oxygen saturation Oxygen saturation in Arterial blood by Pulse oximetry Systolic blood pressure Diastolic blood pressure Provider Name and Address Organization Details Last Updated DateTime 3 182.88 cm 37.7 kg/m2 963268. 68 g 72 /min 97 [degF] 98 % 98 % 122 mm[Hg] 78 mm[Hg] Serene Childress [facility] 3 10:33:57 Date Recorded Body height Body mass index (BMI) Body weight Heart rate Body temperature Oxygen saturation Oxygen saturation in Arterial blood by Pulse oximetry Systolic blood pressure Diastolic blood pressure Provider Name and Address Organization Details Last Updated DateTime 3 182.88 cm 34.6 kg/m2 032979. 05 g 84 /min 97 [degF] 98 % 98 % 124 mm[Hg] 80 mm[Hg] Serene Childress [facility] 3 14:34:15 Date Recorded Body height Body mass index (BMI) Body weight Provider Name and Address Organization Details Last Updated DateTime 03/22/2023 182.88 cm 35.3 kg/m2 733537.02 g Sunni Christensen Jessica [facility] 03/22/2023 09:17:24 Date Recorded Body height Body mass index (BMI) Body weight Heart rate Body temperature Oxygen saturation Oxygen saturation in Arterial blood by Pulse oximetry Systolic blood pressure Diastolic blood pressure Provider Name and Address Organization Details Last Updated DateTime 4 182.88 cm 38.4 kg/m2 957762. 64 g 60 /min 97 [degF] 98 % 98 % 120 mm[Hg] 86 mm[Hg] LARISA Walton [facility] 4 11:12:05 Social History Question Answer Notes LastModified by Organizat ion Details LastModified Time Tobacco Smoking Status Never Smoker Sunni Fermin, LARISA null, [place] [facility] 03/22/2023 09:18:08 What Is Your Level Of Alcohol Consumption? Moderate Information not available 03/22/2023 In The 14 Days Before Symptom Onset, Have You Had Close Contact With A Laboratory-confirm ed COVID-19 While That Case Was Ill? No [id number] Information not available 06/16/2022 In The 14 Days Before Symptom Onset, Have You Had Close Contact With A Person Who Is Under Investigation For COVID-19 While That Person Was Ill? No [id number] Information not available 06/16/2022 Have You Recently Traveled Abroad? No [id number] Information not available 06/16/2022 Sex: Unknown Functional Status None recorded. Mental Status None recorded. Family History Nothing Reported Notes:Mother living in good health. Father unknown health status. No brothers or sisters. Medical History Condition Response NERVE DISEASE N BLINDNESS N RHEUMATIC FEVER N KIDNEY STONES N BLADDER PROBLEMS N MRSA N OTHER # 1 N POLIO N LUNG DISEASE/DISORDER N HISTORY OF DRUG ABUSE N RADIATION / CHEMOTHERAPY N COPD N Other # 2 N BLOOD DISEASES N EAR OR HEARING PROBLEMS N MUMPS N SHINGLES N BOWEL PROBLEMS N DEPRESSION (INCLUDING POST ) N FAILED BACK SYNDROME N STROKE/TIA N ULCERS N BENIGN PROSTATIC HYPERPLASIA N MEASLES N HYPOTENSION N MYOCARDIAL INFARCTION N OBESITY N GERD/NAUSEA N ANEURYSM N URINARY/BLADDER/KIDNEY PROBLEMS N CORONARY ARTERY DISEASE (CAD) N Do you have Advance directive? N ADDICTION CONCERNS N ENDOMETRIOSIS N Impotence N USE OF BLOOD THINNERS N SKIN PROBLEMS Y GASTROINTESTINAL DISORDER N PERIPHERAL VASCULAR DISEASE N MUSCLE,JOINT OR BONE PROBLEMS N GASTROINTESTINAL BLEEDING N BLOOD CLOTS N ASTHMA N Abdominal Pain N CATARACTS N ARTERIAL INSUFFICIENCY N ERECTILE DYSFUNCTION N VARICOSITIES N GI PROBLEMS N Low Testosterone N INFERTILITY N AIDS/HIV N CHEMOTHERAPY / RADIATION N LIVER DISEASE N MALE HYPOGONADISM N HYPERTENSION N Deficiency N TOURETTE'S N ANXIETY DISORDER N BLOOD TRANSFUSION N ANEMIA/BLOOD DISORDER N CHRONIC EAR INFECTIONS N TUBERCULOSIS N GLAUCOMA N FOOT PROBLEM N DIVERTICULITIS N CHICKENPOX N SLEEP APNEA N BACK INJECTIONS N ALLERGIES/HAYFEVER N INFECTIOUS DISEASE N HEART ARRHYTHMIA N PROSTATE N ESRD N INSOMNIA N HIGH CHOLESTEROL / HYPERLIPIDEMIA Y HYPERTHYROIDISM N EYE PROBLEMS N PVD N EDEMA N CHRONIC PAIN SYNDROME N HYPOTHYROIDISM N CONSTIPATION N CAROTID BLOCKAGE N BACK / NECK PROBLEMS N HAVE YOU BEEN HOSPITALIZED OR SEEN IN [facility] IN THE PAST YEAR ? N ATHEROSCLEROSIS N BREAST PROBLEMS N DIALYSIS N POLYCYSTIC OVARIES N ECZEMA N OSTEOPOROSIS N ARTHRITIS N NO SIGNIFICANT PAST MEDICAL HISTORY N APPENDICITIS N DIABETES, TYPE N BAD TEETH N VON WILLIBRAND'S DISEASE N ENT N HEARTBURN / REFLUX N GI N AUTISM SPECTRUM DISORDER (ASD) N POST LAMINECTOMY SYNDROME N HEPATITIS / LIVER DISEASE N GOUT N SLEEP DISORDER N ALZHEIMER'S DISEASE N Brain Problems N HERPES N DEMENTIA N HEADACHES/MIGRAINES N SEIZURES/EPILEPSY N VASCULAR DISEASE N PACEMAKER N DIZZINESS N HEART DISEASE/HEART PROBLEMS N KIDNEY DISEASE N MULTIPLE SCLEROSIS N NEUROPSYCHOLOGICAL N CARDIAC ARRHYTHMIA N CANCER: SPECIFY N ATRIAL FIBRILLATION N Gall Stones N PULMONARY EMBOLISM N AUTOIMMUNE DISEASE N Past Encounters Encounter ID Performer Location Encounter Start Date Encounter Closed Date Diagnosis/Indication Diagnosis SNOMED-CT Code Diagnosis ICD10 Code Diagnosis Note [id number] [facility] Internal Med [facility] [address] [address] 04/27/2021 00:00:00 04/27/2021 14:32:01 [id number] [facility] Internal Med Jet ayala [address] [place] [address] [place] [address] 02/12/2022 00:00:00 02/12/2022 16:55:52 [id number] Cipriano Trujillo MD [facility] [address] [place] [address] [place] [address] 06/22/2022 10:27:09 06/22/2022 10:59:17 Adult health examination 946838853 Z00.00 Depression screening 171 777003 Z13.31 History of gallstones 40 7212933 Z87.19 Hypercholesterolemia 136 28805 E78.00 Tear of me dial meniscus of knee 560496474 S83.241A Obesity 883456116 E66.9 Disorder of prostate 302 [address] N42.9 [id number] Cipriano Trujillo MD [facility] Internal Med [facility] [address] [address] 03/17/2023 14:16:46 03/17/2023 14:55:26 Degenerative joint disease of hand 68210669 M19.676 [id number] Sara Torres NP [facility] [place] [address] [facility] [address] [place] [address] 03/22/2023 09:04:43 03/22/2023 10:05:17 Pain of bilateral hands 9905667021 0756171 M79.641 M79.174 [id number] Cipriano Trujillo MD [facility] Kenny ayala [address] [facility] [address] [place] [address] 04/05/2024 10:50:58 04/05/2024 14:11:53 Adult health examination 776682612 Z00.00 Depression screening 171 126508 Z13.31 Acute bronchitis 1443255 2 J20.9 Hypercholesterolemia 136 96152 E78.00 Obesity 197448392 E66.9 Health Concerns Section Related Observation LastModified by Organization Detai ls LastModified Time None Recorded Concern Status LastModified by Organization Details LastModified Time None Recorded Advance Directives Directive None Recorded Payers Encounter Date Sequence Insurance Name Policy Number Policy Manning Covered Member ID Manning Member ID Guarantor Name 06/22/2022 1 [employer] - [facility] - CHOICE PLUS (PPO) [id number] Lobo Perez [id number] Lobo Perez 03/17/2023 1 [employer] - [employer] - CHOICE PLUS (PPO) [id number] Lobo Perez [id number] Lobo Perez 03/22/2023 1 [employer] - [facility] - CHOICE PLUS (PPO) [id number] Lobo Perez [id number] Lobo Perez 04/05/2024 1 [facility] [id number] Lobo Perez [id number] Lobo Perez Notes Date Note Type Note Provider Name and Address Organization Details Recorded Time 06/22/2022 text/html Patient Name: Mike ferguson ChrisDate Of Service: Tuesday ( 06.22.2022 ): 1970 Age: 52 There has been approximately a 5 lb weight gain since 02/12/2022. This represents approximately a 1.8% change in weight. Weight change attributable to lifestyle changes. Vital Signs:Blood Pressure: Sitting Rt. Arm 122/78Pulse: Sitting 72 /min and RegularRespirations: 12Height 72 in or 1.8 mWeight 278 lb or 126.1 kgBMI 37.7Temperature: 97 F or 36.1 CPulse Oximetry: 98 % at rest on no oxygen Chief Complaint: Addressed in HPI Problems or conditions discussed in the HPI were the only ones reviewed during the encounter.Only social and family history addressed in the HPI were reviewed during this encounter. Attendant(s): None Constitutional and Systemic Symptoms: none Medication Reconciliation: from medication list. History of Present Illness In for a well patient check up. Last well patient evaluation was approximately one year. No interval complaints of any new major medical problems. No hx of any chest pain, shortness of breath, nausea, vomiting, diarrhea or constitutional symptoms.PSA orderedColonoscopy or Cologuard: dueImmunizations Up To Date or refuses to takeNo Significant Change In Family HxFall Risk normalDepression Score: 0Hearing normalVisual normalReviewed Smoking and Drug HistoryReviewed Immunization HistoryInstructed on importance of weight on diabetes, heart and other diseases aggravated by obesity.Instructed on importance of weight on diabetes, heart and other diseases aggravated by obesity. #1. Surgical Clearance: [facility] for surgery as requested by Dr. Saha. Is scheduled to have right knee meniscus tear at [place] next week. The surgery is low risk. The patient has history of no cardiac or pulmonary problems risk for surgery. #2. History of hypercholesterolaemia: History of the high cholesterol. Not taking any medications and being controlled by diet. No interval complaints of any chest pain, shortness of breath, orthopnea or other cardiovascular complaints. Last lipid panel: no testing done recently #3. History of cholelithiasis. Has not had a cholecystectomy. No history of recurrent biliary attacks. Overall there has been no change in symptoms since the last visit. #4. Right medial meniscus tear. Being followed by Orthopedic. Is in the process of getting the surgically impaired repair next week.: #5. Hx of obesity. Currently mildly obese. Has tried numerous dietary support and supplements with no benefit. Instructed on the health consequences of the obese status particularly diabetes and heart disease. Potential candidate for bariatric surgery: No. Wishes to be evaluated by Dietary: No and was offered to be evaluated by dietary.Social HistorySmokes approximately a half pack daily. Drinks socially. Works construction.Family HistoryMother living in good health. Father unknown health status. No brothers or sisters. Cipriano Trujillo MD [address] [facility], [facility] [address], [place], [address], [employer] 06/22/2022 10:56:31 03/17/2023 text/html Patient Name: Mike Bob Of Service: February ( 03.17.2023 ): 1970 Age: 53 There has been approximately a 23 lb weight loss since 06/22/2022. This represents approximately a 8.3% change in weight. Weight change attributable to lifestyle changes. Vital Signs:Blood Pressure: Sitting Rt. Arm 124/80Pulse: Sitting 84 /min and RegularRespiratory Rate: 12Height 72 in or 1.8 mWeight 255 lb or 115.7 kgBMI 34.6Temperature: 97 F or 36.1 CPulse Oximetry: 98 % at rest on no oxygen Chief Complaint: Addressed in HPI Problems or conditions discussed in the HPI were the only ones reviewed during the encounter.Only social and family history addressed in the HPI were reviewed during this encounter. Attendant(s): NoneConstitutional and Systemic Symptoms:none Medication Reconciliation: from medication list. History of Present Illness #1. Hx of DJD stable. No interval complaints of any additional joint pain, swelling or redness. Joints most involved include hands. Medications: NSAIDS The DJD does interfere with ADL and ambulation.Medication List Reviewed and Reconciled 03/17/2023Turmeric DailyAleve Daily As NeededSocial HistorySmokes approximately a half pack daily. Drinks socially. Works construction.Family HistoryMother living in good health. Father unknown health status. No brothers or sisters. Cipriano Trujillo MD [address] [facility], [facility] [address], [place], [address], [employer] [facility] [employer] 03/17/2023 14:50:27 04/05/2024 text/html Patient Name: Mike Bobte Of Service: March ( 04.05.2024 ): 1970 Age: 54 There has been approximately a 28 lb weight gain since 03/17/2023. This represents approximately a 11.0% change in weight. Weight change attributable to lifestyle changes. Vital Signs:Blood Pressure: Sitting Rt. Arm 120/86Pulse: Sitting 60 /min and RegularRespiratory Rate: 16Height 72 in or 1.8 mWeight 283 lb or 128.4 kgBMI 38.4Temperature: 97 F or 36.1 CPulse Oximetry: 98 % at rest on no oxygen Chief Complaint: Addressed in HPI Problems or conditions discussed in the HPI were the only ones reviewed during the encounter.Only social and family history addressed in the HPI were reviewed during this encounter. Attendant(s): NoneConstitutional and Systemic Symptoms:none Medication Reconciliation: from medication list. [id number]: CT brain demonstrates no acute intracranial hemorrhage or extra-axial fluid collection. No mass effect or midline shift. The ventricles and sulci are within normal limits for size and age. History of Present Illness In for a well patient check up. Last well patient evaluation was approximately one year. No interval complaints of any new major medical problems. No hx of any chest pain, shortness of breath, nausea, vomiting, diarrhea or constitutional symptoms.PSA orderedColonoscopy or Cologuard: not dueImmunizations Up To Date or refuses to takeNo Significant Change In Family HxFall Risk normalDepression Score: 0Hearing normalVisual normalReviewed Smoking and Drug HistoryReviewed Immunization HistoryInstructed on importance of weight on diabetes, heart and other diseases aggravated by obesity.Instructed on importance of weight on diabetes, heart and other diseases aggravated by obesity. #1. Mild history of cough congestion sore Throat for a week duration. No associated fever, chills, hemoptysis, shortness of breath or any wheezing or other pulmonary symptomatology.: #2. History of hypercholesterolaemia: History of the high cholesterol. Not taking any medications and being controlled by diet. No interval complaints of any chest pain, shortness of breath, orthopnea or other cardiovascular complaints. Last lipid panel: suboptimal by ATP III guidelines #3. Hx of obesity. Currently Class 2 Obesity BMI 35-39.99. Has tried numerous dietary support and supplements with no benefit. Instructed on the health consequences of the obese status particularly cancer - diabetes and heart disease. Discussed other modalities of weight loss GLP-1 medications that are used to treat diabetes . Potential candidate for bariatric surgery: Yes but does no wish to pursue. Wishes to be evaluated by Dietary: No and was offered to be evaluated and instructed by scraper loader operator on weight loss diet. Active Medication ListTurmeric DailyAleve Daily As Needed Social HistorySmokes approximately a half pack daily. Drinks socially. Works construction. Family HistoryMother living in good health. Father unknown health status. No brothers or sisters. TEST RESULT RANGE UNITSCBC (INCLUDES DIFF/PLT) Date: 07/27/2023WHITE BLOOD CELL COUNT 6.5 3.8-10.8 THOUSAND/ULHEMOGLOBIN 15.5 13.2-17.1 G/DLHEMATOCRIT 46.6 38.5-50.0 %PLATELET COUNT 195 140-400 THOUSAND/ULCOMPREHENSIV E METABOLIC PANEL Date: 07/27/2023SODIUM 135 135-146 MMOL/LPOTASSIUM 4.6 3.5-5.3 MMOL/LGLUCOSE 77 65-99 MG/DLUREA NITROGEN (BUN) 16 7-25 MG/DLCREATININE 0.94 0.70-1.30 MG/DLEGFR 96 > OR = 60 ML/MIN/1.04G6DOKHNJTOG, TOTAL 0.5 0.2-1.2 MG/DLALKALINE PHOSPHATASE 44 35-144 U/LAST 32 10-35 U/LALT 33 9-46 U/LLIPID PANEL, STANDARD Date: 07/27/2023HOLESTEROL, TOTAL 239 <200 MG/DLHDL CHOLESTEROL 45 > OR = 40 MG/DLTRIGLYCERIDES 120 <150 MG/DLLDL-CHOLESTEROL 169 MG/DL (CALC)T4, FREE Date: 07/27/2023T4, FREE 0.9 0.8-1.8 NG/DLPSA, TOTAL Date: 07/27/2023SA, TOTAL 0.22 < OR = 4.00 NG/MLTSH Date: 07/27/2023TSH 2.44 0.40-4.50 MIU/L Cipriano Trujillo MD [address] [facility], [facility] [address], [place], [address], [place] [facility] 04/05/2024 12:02:21
== END 2024-07-09 11:11 | disposition home or self-care (01) ==
PROVIDERS: PCP Internal Medicine; Visit Provider Internal Medicine
DX: R05.9 Cough, unspecified (principal)
CPT/HCPCS: 71046

== ENCOUNTER 2024-08-16 09:55 | Outpatient (CLI) | payer OTHER, SELFPAY ==
--- NOTE | ~2024-08-16 | XR_ITS ---
Thoracic spine: Clinical Indication: Status post fall AP and lateral views were performed. No fracture is seen. There is normal alignment of the vertebrae. There are mild degenerative disc ch anges lower thoracic spine. Paravertebral soft tissues appear normal. Impression: Mild degenerative disc changes at the lower thoracic spine. Reviewed, dictated and finalized at [facility]. Impression: Mild degenerative disc changes at the lower thoracic spine.
--- NOTE | ~2024-08-16 | XR_ITS ---
Clinical Indication: Sprain of the thorax PA and lateral views of the chest: Comparison: 07/09/2024 Findings: Stable calcified granulomas in the right lung. The lungs are otherwise clear, without evide nce of focal consolidation or pleural effusion. Cardiomediastinal silhouette is within normal limits . Bones and soft tissues are unremarkable. Impression: No acute abnormality. Reviewed, dictated and finalized at location . Impression: No acute abnormality.
--- OUTSIDE RECORDS SUMMARY | 2024-08-16 10:43 | XMS_ITS | CONTINUITY OF CARE DOCUMENT ---
Author Name debra richardson Address Unknown Organization [facility] Address [address] [place] [address] [address] [place] [address] Phone [phone] Care Team Providers Care Maintenance And Operations Supervisor Name Role Phone debra richardson Unavailable Unavailable
== END 2024-08-16 09:56 | disposition home or self-care (01) ==
PROVIDERS: PCP Internal Medicine; Visit Provider Internal Medicine
DX: S23.9XXD Sprain of unspecified parts of thorax, subsequent encounter (principal); X58.XXXD Exposure to other specified factors, subsequent encounter; M51.24 Other intervertebral disc displacement, thoracic region
CPT/HCPCS: 71046; 72070

== ENCOUNTER 2024-11-14 07:45 | Outpatient (CLI) | payer OTHER, SELFPAY ==
--- NOTE | ~2024-11-14 | CT_ITS ---
EXAMINATION: CT soft tissue neck w con DATE: 11/14/2024 08:09 INDICATION: Chronic lump at the back of the neck. TECHNIQUE: Computed tomography (CT) of the neck was performed with 75 mL Omnipaque-350 intravenous co ntrast. Automated exposure control and iterative reconstruction technique were employed. The dose-jacqueline gth product was 643.77 mGy-cm. COMPARISON: None FINDINGS: Orbits are normal. The paranasal sinuses are clear. Mastoid air cells and middle ear cavities are kevon ar. Submandibular and parotid glands are normal and symmetric. Thyroid gland is unremarkable. There a re scattered normal-sized lymph nodes in the neck, no lymphadenopathy. Homogeneously macroscopic fat attenuation 4.2 x 3.5 x 2.0 cm subcutaneous lipoma extending to the right of midline in the nuchal re gion at the posterior upper neck. The vasculature is patent and normal in caliber. Airway is unremark able. Superior mediastinum is unremarkable. Lung apices are normal. IMPRESSION: 1. Massive concern at the right nuchal region corresponds to a 4.2 x 3.5 x 2.0 cm subcutaneous lipoma . Reviewed, dictated and finalized at location A. IMPRESSION: 1. Massive concern at the right nuchal region corresponds to a 4.2 x 3.5 x 2.0 cm subcutaneous lipoma.
== END 2024-11-14 07:46 | disposition home or self-care (01) ==
PROVIDERS: PCP Internal Medicine; Visit Provider Otolaryngology
DX: D17.0 Benign lipomatous neoplasm of skin and subcutaneous tissue of head, face and neck (principal); R22.1 Localized swelling, mass and lump, neck
CPT/HCPCS: 70491; Q9967

== ENCOUNTER 2025-01-15 05:48 | Day surgery (SDC) | payer OTHER, SELFPAY ==
--- OUTSIDE RECORDS SUMMARY | 2022-07-30 04:00 | XMS_ITS | Continuity of Care Document ---
Author Organization [facility] Address [address] [place] [address] Phone Care Team Providers Care Mechanical Field Engineer Name Role Phone Naren Nassar Unavailable Unavailable Procedures Procedure Date Therapeutic Activities Neuromuscular Re-Ed Therapeutic Exercise Manual Therapy Therapeutic Activities Neuromuscular Re-Ed Therapeutic Exercise Manual Therapy Hot or Cold Pack PT Evaluation Moderate Complexity Therapeutic Activities Neuromuscular Re-Ed Electrical Stimulation Therapeutic Exercise Advance Directives Directive Yes / No Effective Date File Name No Information Encounters Encounter Description Practice Location Reason(s) For Visit Diagnoses Date Provider Providers Copied on Encounter [facility] [address] [address], [place], [place], [id number], [phone] [place] No Information 3 Ivonne Sneed. [address] [address], [address], [place], [facility] [place], [place]. tel: [phone] [facility], [address], [place], [place], [id number], tel:[phone] [place] No Information 3 Ivonne Sneed. [address], [address], [place], [place], [facility] [place], [place]. tel: [phone] Referring Provider: [address], [place], [address]. tel:[phone], [id number], tel:[phone] [place] No Information 3 Ivonne Sneed. [address] [address], [place] [address], . [phone] Referring Provider: [address], [place], [address]. tel:[phone], [id number], tel:[phone] [place] No Information 3 Ivonne Sneed. [address] [place] [address], [facility] [address] [address], . [phone] Referring Provider: [address], [place], [address]. tel:[phone] Family History Family Member Type Diagnosis Age At Onset No Information Payers Payer name Insurance type Covered libertarian ID Dary mossalexx(s) [facility] [employer] [id number] Social History Type Description Quantity Date Captured Comments Sex Male Smoking Status No Information Chief Complaint And Reason For Visit No Information Reason For Referral Reason For Referral No Information History Of Present Illness Encounter Date Complaint History Of Prese nt Illness No Information Functional Status Date Functional Assessmen t No Information Instructions Date Instruction Additional Infor mation Prescribed activity/exercise edu cation Related to Overweight Dietary needs education Related to Overweight Assessments Type Assessment Date No Information Patient Care Teams Name Effective Dates (start - stop) Status Members No Information
[2024-11-26 13:09] VITALS: BMI 38.7
[2025-01-03 10:43] VITALS: BMI 37.5
--- NOTE | 2025-01-13 17:05 | P.HP_ITS ---
H&P: HPI History of Present Illness Date/Time: 01/13/25 17:05 Chief Complaint: Posterior neck scalp lesion Narrative: Planned surgical procedure Review of Systems Review of Systems: All systems reviewed & are unremarkable except as noted in HPI and below PMFSH Past Medical History Medical History (Updated 10/31/24 @ 08:00 by Ellis Rowe MD) Effusion, right knee Right knee injury Seasonal allergies Vision abnormalities Right knee pain Family History Family History Other Diabetes mellitus Heart disease Hypertension Social History Social History Smoking status: Never smoker Second hand tobacco smoke exposure: No Smoking end date: 04/18/16 Alcohol intake: current Drinks per week: 4 Substance use: former Substance use type: marijuana Last use: SEVERAL YEARS AGO Current Housing: Decline to Answer Concerned About Future Housing: Decline to Answer Difficulty Paying Gas/Electric Bills: Decline to Answer Difficulty Paying for Meds: Decline to Answer Currently Unemployed: Decline to Answer Education: Decline to Answer Difficulty w/ Childcare or Family Care: Decline to Answer Living arrangements: with family Gender identity (if verbalized by the patient): Male Spiritual care concerns: No Meds Home Medications and Allergies Home Medications ?Medication ?Instructions ?Recorded ?Confirmed ?Type No Home Medications 04/30/22 01/03/25 H istory Allergies Allergy/AdvReac Type Severity Reaction Status Date / Time No Known Allergies Allergy Verified 01/03/25 10:42 Exam Narrative: Posterior neck scalp lesion Assessment and Plan Assessment and plan (1) Neck mass: Code(s): R22.1 - Localized swelling, mass and lump, neck Status: Acute Assessment and Plan: Plan OR excision of posterior neck scalp mass. On CT it measures 8 x 5 cm. Will potentially need per own versus lateral decubitus positioning. Anesthesia general. Total operative time 2:00 hours minimum 2-3 hours total, potential. Risks were discussed bleeding infection damage to surrounding structures recurrence of lesion need for drain placement. Time off work time off school change in cosmetic appearance numbness in the region. Damage to any structure above the clavicles by myself. Damage to any structure during the induction and maintenance of anesthesia. (2) Lipoma of neck: Code(s): D17.0 - Benign lipomatous neoplasm of skin and subcutaneous tissue of head, face and neck Status: Acute
[2025-01-15] VITALS (8 sets, daily range): BP systolic 111–162; BP diastolic 85–101; PULSE 64–79; RESP 13–18; TEMP 36.3; O2SAT 98–100
--- OUTSIDE RECORDS SUMMARY | 2025-01-15 06:15 | XMS_ITS | Clinical Summary ---
Author Organization [facility] Address [address] [place] [address] Phone Care Team Providers Care Contract Law Specialist Name Role Phone Unavailable Primary Care Provider Unavailabl e Encounters Date Type Department Care Team Description 12/05/2024 External Device Data ST[facility] ABSTRACTION Provider, Abstract 12/04/2024 External Device Data [facility] ABSTRACTION Provider, Abstract 12/04/2024 External Device Data [facility] ABSTRACTION Provider, Abstract 11/29/2024 10:36 AM CDT - 11/29/2024 11:59 PM CDT Hospital Encounter [facility] [address] [place] [address] Cipriano Trujillo MD Discharge Disposition: Home or Self Care from Last 3 Months Social History Tobacco Use Types Packs/Day Years Used Date Smoking Tobacco: Never Assessed Sex and Gender Information Value Date Recorded Sex Assigned at Not on file Legal Sex Male 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 Gender Identity Not on file Sexual Orientation Not on file Plan of Treatment Health Maintenance Due Date Last Done Comments DTAP/TDAP/TD VACCINES (1 - Tdap) 01/22/1988 HEPATITIS B VACCINES (1 of 3 - 19+ 3-dose series) 09/1987 COLORECTAL SCREENING 2014 Colorectal Cancer Screening 2014 FIT-DNA Q 3 years 2014 FIT/FOBT Q 1 year 2014 Flex Sig/CT Colonography Q 5 years 2014 ZOSTER VACCINE (1 of 2) 2019 INFLUENZA VACCINE (#1) 2024 Procedures Procedure Name Priority Date/Time Associated Diagnosis Comments CT ABDOMEN PELVIS WO CONTRAST Routine 11/29/2024 10:47 AM CDT Ventral hernia without obstruction or gangrene from Last 3 Months Results * CT ABDOMEN PELVIS WO CONTRAST (11/29/2024 10:47 AM CDT) Anatomical Region Laterality Modality Abdomen Computed Tomogra phy 11/29/2024 10:4 0 AM CDT Impressions 11/29/2024 11:06 AM CDT IMPRESSION: 1. Tiny fat-containing umbilical hernia. 2. Hepatic steatosis. Cholelithiasis. Mild sigmoid colon diverticulosis. Narrative 11/29/2024 11:06 AM CDT EXAMINATION: CT abdomen pelvis without contrast DATE: 11/29/2024 10:47 AM HISTORY: Ventral hernia COMPARISON: None. TECHNIQUE: Thin slice axial images acquired through the abdomen and pelvis without intravenous contrast. Two-dimensional sagittal and coronal reformatted images obtained. The examination was performed with the adjustment of mA according to the patient size and/or the use of Iterative Reconstruction Technique. FINDINGS: Small scattered calcified granulomas in the lung bases. Hepatic steatosis. Cholelithiasis. Small calcified granulomas in the spleen. Small exophytic right renal cyst. Left kidney, pancreas, and both adrenal glands unremarkable. Mild distal abdominal aortic atherosclerosis. Mild sigmoid colon diverticulosis. No bowel obstruction or inflammation. Normal appendix. No mesenteric or retroperitoneal lymphadenopathy. Tiny fat-containing umbilical hernia. Pelvic viscera unremarkable. No pelvic mass, free fluid, or lymphadenopathy. Mild leftward asymmetry of the thoracolumbar spine. Multilevel thoracolumbar spondylosis. Mild bilateral femoroacetabular osteoarthritis. Procedure Note Cipriano Aguilar MD - 11/29/2024 EXAMINATION: CT abdomen pelvis without contrast DATE: 11/29/2024 10:47 AM HISTORY: Ventral hernia COMPARISON: None. TECHNIQUE: Thin slice axial images acquired through the abdomen and pelvis without intravenous contrast. Two-dimensional sagittal and coronal reformatted images obtained. The examination was performed with the adjustment of mA according to the patient size and/or the use of Iterative Reconstruction Technique. FINDINGS: Small scattered calcified granulomas in the lung bases. Hepatic steatosis. Cholelithiasis. Small calcified granulomas in the spleen. Small exophytic right renal cyst. Left kidney, pancreas, and both adrenal glands unremarkable. Mild distal abdominal aortic atherosclerosis. Mild sigmoid colon diverticulosis. No bowel obstruction or inflammation. Normal appendix. No mesenteric or retroperitoneal lymphadenopathy. Tiny fat-containing umbilical hernia. Pelvic viscera unremarkable. No pelvic mass, free fluid, or lymphadenopathy. Mild leftward asymmetry of the thoracolumbar spine. Multilevel thoracolumbar spondylosis. Mild bilateral femoroacetabular osteoarthritis. IMPRESSION: 1. Tiny fat-containing umbilical hernia. 2. Hepatic steatosis. Cholelithiasis. Mild sigmoid colon diverticulosis. us Cipriano Trujillo MD CT ORDERABLES Final Result from Last 3 Months [employer] [facility] [id number]
[2025-01-15] MEDS: ACETAMINOPHEN 500 MG TABLET 1000 MG PO (06:31)
[2025-01-15] MEDS: LACTATED RINGERS 1,000 ML 30 ML IV CONT (06:37)
--- NOTE | 2025-01-15 07:10 | P.PNAN_ITS ---
Anes - Initial Pre Proc Eval Procedure: Operation Date: 01/15/25 07:30 Proposed Procedures p Excision Posterior Neck Mass with Complex Closure - Ellis Rowe MD Date/Time: 01/15/25 07:10 Surgeon: Ellis Rowe MD Pre Op Diagnosis: Benign Lipomatous, Neoplasm of Skin Patient Data Age: 54 Gender: M Height: 1.8 m Weight: 124.85 kg Last Vital Signs Temp 97.4 F L 01/15/25 06:26 Pulse 72 01/15/25 06:26 Resp 18 01/15/25 06:26 BP 111/85 01/15/25 06:26 Pulse Ox 98 01/15/25 06:26 O2 Del Method Room Air 01/15/25 06:26 Allergies Allergy/AdvReac Type Severity Reaction Status Date / Time No Known Allergies Allergy Verified 01/15/25 06:25 Home Medications ?Medication ?Instructions ?Recorded ?Confirmed ?Type No Home Medications 04/30/22 01/15/25 H istory Patient hx anesthesia problems: none Family hx anesthesia problems: none Results Review: All pre-operative results and documents have been reviewed as part of the pre- operative evaluation. [facility] Past Medical History Medical History (Updated 10/31/24 @ 08:00 by Ellis Rowe MD) Effusion, right knee Right knee injury Seasonal allergies Vision abnormalities Right knee pain Family History Family History Other Diabetes mellitus Heart disease Hypertension Social History Social History Smoking status: Never smoker Second hand tobacco smoke exposure: No Smoking end date: 04/18/16 Alcohol intake: current Drinks per week: 4 Substance use: former Substance use type: marijuana Last use: SEVERAL YEARS AGO Current Housing: Decline to Answer Concerned About Future Housing: Decline to Answer Difficulty Paying Gas/Electric Bills: Decline to Answer Difficulty Paying for Meds: Decline to Answer Currently Unemployed: Decline to Answer Education: Decline to Answer Difficulty w/ Childcare or Family Care: Decline to Answer Living arrangements: with family Gender identity (if verbalized by the patient): Male Spiritual care concerns: No Anes - Eval Final PreProcedure Day of Procedure 01/15/25 07:10 Heart: regular rate and rhythm Lungs: clear to auscultation Airway: Mallampati scale class IV Neurological: alert and oriented Last oral intake: >/= 8 hours ASA classification: III Anesthetic plan: proceed Anesthesia type and monitoring: general Results Review: All pre-operative results and documents have been reviewed as part of the pre- operative evaluation. Informed Consent: The patient's anesthetic plan and its attendant risks and benefits were discussed with the patient/family/POA. Questions were solicited and answers provided to the satisfaction of the patient/family/POA.
--- NOTE | 2025-01-15 07:28 | WPDHPUPDATE1 ---
History and Physical Update Update Date/Time: 01/15/25 07:28 History and Physical has been reviewed, including an updated exam of the patient. There are NO changes in the patient's condition. Risks, benefits, and alternatives have been discussed and questions answered. Patient agrees to proceed with procedure.
[2025-01-15] MEDS: ceFAZolin 3 GM/D5W 100 ML 100 ML IVPB (08:10)
[2025-01-15] MEDS: LIDO 1%/EPINEPHRINE 1:100,000 20 ML VIAL INFILTRATE (09:11)
--- NOTE | 2025-01-15 10:47 | P.OP_ITS ---
Procedure Note - Detailed Date of Procedure 01/15/25 Pre-op Diagnosis Benign Lipomatous, Neoplasm of Skin Post-op Diagnosis Same Procedure Performed 1. Excision of posterior scalp mass measuring 8 x 6 cm, with complex closure Surgeon Ellis Rowe MD Anesthesia General Indications see above Findings lipoma measuring approximately 8 x 6 cm, clinically, completely excised. No remnant lipoma remained. Description of Procedure Patient identified consent verified the preoperative holding area. Patient brought to the operating. Time-out performed. General anesthesia induced endotracheal tube secured. Patient prepped draped positioned in the prone position. Second time-out performed. Procedure confirmed. Surgical incision drawn with a surgical marking pen. Total of 3 cc 1% lidocaine with 1 100,000 parts epinephrine checked deep to this pre drawn incision. Incision made with 15 blade through the skin subcutaneous tissue bleed. Bovie electrocautery was utilized to dissect down to the capsule of the lipoma. The lipoma was dissected around with peanuts as well as blunt dissection and bipolar electrocautery setting of 20 in 25. Lipoma was completely excised. Any bleeding vessels were cauterized with bipolar. Any remnant fat was bipolar. There is only like 3 small portions. None of them appear to be a lipoma. The wound was then copiously irrigated. Seven Nauruan fluted flat fluted drain was placed. Sutured to the skin with 3 0 excuse me to all nylon suture. Skin closed in multiple layers sided the defect was closed in multiple layers deep layer 3 0 interrupted Vicryl sutures. Skin and dermal the deep dermal 3 0 interrupted Vicryl sutures. The skin was perfectly approximated. Skin glue was placed over this period suction holding good suction. Total blood loss about 2 cc. I performed all dictated portions of procedure. No complications. Care the patient given back to Anesthesiology. Patient was taken to PACU where all the cranial nerves were intact and his face had no trauma from Howard in the prone position. Estimated Blood Loss 2 Drains Yes Packing No Pathology Yes Complications No immediate complications Condition Stable Disposition PACU [facility] Billing Surgery - Charge Forward: Surgery Billing
== END 2025-01-15 12:25 | disposition home or self-care (01) ==
PROVIDERS: PCP Internal Medicine; Visit Provider Otolaryngology
PROC: (CPT 21552; principal; 2025-01-15 07:30)
DX: D17.0 Benign lipomatous neoplasm of skin and subcutaneous tissue of head, face and neck (principal)
CPT/HCPCS: 21552; 13132; 13133

== ENCOUNTER 2025-01-15 11:26 | Outpatient (NON) | payer OTHER, SELFPAY ==
--- NOTE | 2025-01-15 | S_PTH ---
PATIENT: Lobo Perez LOC: ANHLAB #:[id number] AGE/SX: 54/M ROOM: RE01/15/[address]: Ellis Rowe MD : 1970 BED: DIS: 01/15/2025 SPEC #: [id number] RECD: 01/16/25 11:36 STATUS: MOHAN RELina #: [id number] ISABELLA: 01/15/25 00:[address]: Ellis Rowe DEPT: [facility] Surgical RECD BY: Meghana Bajwa ENTERED: 01/16/25 11:37 SP TYPE: Surgical OTHR DR: Cipriano Trujillo, Tissues: A - Mass Procedures: Hematoxylin and Eosin Stain Gross and Microscopic Level 3
--- OUTSIDE RECORDS SUMMARY | 2025-01-16 12:08 | XMS_ITS | Clinical Summary ---
Author Organization [facility] Address [address] [facility] [place] [address] Phone Care Team Providers Care Installation And Repair Technician Name Role Phone Unavailable Primary Care Provider Unavailabl e Encounters Date Type Department Care Team Description 12/05/2024 External Device Data [facility] ABSTRACTION Provider, Abstract 12/04/2024 External Device Data [facility] ABSTRACTION Provider, Abstract 12/04/2024 External Device Data [facility] ABSTRACTION Provider, Abstract 11/29/2024 10:36 AM CDT - 11/29/2024 11:59 PM CDT Hospital Encounter [facility] [address] [place] [address] Cipriano Trujillo MD Discharge Disposition: Home or Self Care from Last 3 Months Social History Tobacco Use Types Packs/Day Years Used Date Smoking Tobacco: Never Assessed Sex and Gender Information Value Date Recorded Sex Assigned at Not on file 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 [id number]
== END 2025-01-15 11:27 | disposition home or self-care (01) ==
LOC: ANHLAB 01-16 11:27
PROVIDERS: PCP Internal Medicine; Visit Provider Otolaryngology
DX: D17.0 Benign lipomatous neoplasm of skin and subcutaneous tissue of head, face and neck (principal)
CPT/HCPCS: 88304